=== PATIENT | female | born 1950 | race American Indian/Alaskan Native ===

== ENCOUNTER 2017-03-15 19:27 | Emergency (ER) | payer MEDICARE, OTHER ==
[2017-03-15 19:32] VITALS: BMI 32.8
--- NOTE | 2017-03-15 20:13 | ED PDOC ---
Arrival/HPI - General Chief Complaint: Lower Extremity Problem/Injury Time Seen by Provider: 03/15/17 19:29 Historian: Patient - History of Present Illness Narrative History of Present Illness (Text): 03/15/17 20:09 A 67 year old female, whose past medical history includes psoriasis and smoker, sent into the emergency department by PMD for left leg pain and swelling for 5 days. Patient was sent by Dr. Bolanos for an ultrasound. She denies any discoloration or coldness to her left foot. Patient denies any fever, chills, nausea, vomiting, abdominal pain, chest pain, shortness of breath or any other complaints. Patient denies history of mrsa. PMD: Dr. Bolanos Time/Duration: Other (5 days) Symptom Course: Unchanged Quality: Other Context: Home Past Medical History - Provider Review Nursing Documentation Reviewed: Yes - Tetanus Immunization Tetanus Immunization: >10 years Ago - Cardiac Hx Hypertension: Yes - Pulmonary Hx Respiratory Disorders: Yes Other/Comment: SMOKER - Neurological Hx Neurological Disorder: No - HEENT Hx HEENT Disorder: No - Renal Hx Renal Disorder: No - Endocrine/Metabolic Hx Hypothyroidism: Yes - Hematological/Oncological Hx Blood Disorders: No - Integumentary Hx Dermatological Disorder: No - Musculoskeletal/Rheumatological Hx Musculoskeletal Disorders: No - Gastrointestinal Hx Gastrointestinal Disorders: No - Genitourinary/Gynecological Hx Genitourinary Disorders: No - Psychiatric Hx Psychophysiologic Disorder: No Hx Substance Use: No - Surgical History Other/Comment: L BREAST BX - Suicidal Assessment Feels Threatened In Home Enviroment: No Family/Social History - Physician Review Nursing Documentation Reviewed: Yes Family/Social History: No Known Family HX Smoking Status: Heavy Smoker > 10 Cigarettes Daily Hx Alcohol Use: No Hx Substance Use: No Hx Substance Use Treatment: No Allergies/Home Meds Allergies/Adverse Reactions: Allergies corn Allergy (Verified 03/15/17 19:33) ANAPHYLAXIS rye Allergy (Uncoded 03/15/17 19:33) ANAPHYLAXIS Home Medications: Home Meds Medication Instructions Recorded Confirmed Levothyroxine Sodium [Levoxyl] 88 mcg PO DAILY 03/15/17 03/15/17 Review of Systems - Physician Review All systems were reviewed & negative as marked: Yes - Review of Systems Constitutional: absent: Fevers, Night Sweats Respiratory: absent: SOB Cardiovascular: absent: Chest Pain Gastrointestinal: absent: Abdominal Pain, Nausea, Vomiting Musculoskeletal: Other (left leg pain and swelling) Physical Exam Vital Signs Reviewed: Yes Vital Signs Temp Pulse Resp BP Pulse Ox 03/15/17 19:36 98.2 F 92 H 17 120/71 95 Temperature: Afebrile Blood Pressure: Normal Pulse: Tachycardic Respiratory Rate: Normal Appearance: Positive for: Well-Appearing, Non-Toxic, Comfortable Pain Distress: None Mental Status: Positive for: Alert and Oriented X 3 - Systems Exam Mouth: Present: Moist Mucous Membranes Respiratory/Chest: Present: Clear to Auscultation, Good Air Exchange. No: Respiratory Distress, Accessory Muscle Use Cardiovascular: Present: Regular Rate and Rhythm, Normal S1, S2. No: Murmurs Abdomen: Present: Normal Bowel Sounds. No: Tenderness, Distention, Peritoneal Signs Lower Extremity: Present: Edema (bilateral trace pedal edema), CALF TENDERNESS ( area of tenderness to left posterior calf 2cm in diameter ), Normal ROM, Temperature Abnormalties (area of warmth to left posterior calf 2cm in diameter ), Neurovascularly Intact, Other (Mild induration but no significant fluctuance or drainage. Good profusion to bilateral feet and toes.). No: NORMAL PULSES (1 + DP pulse) Neurological: Present: GCS=15, CN II-XII Intact, Speech Normal Skin: Present: Warm, Dry, Normal Color. No: Rashes Psychiatric: Present: Alert, Oriented x 3, Normal Insight, Normal Concentration Medical Decision Making ED Course and Treatment: 03/15/17 20:09 Impression: A 67 year old female sent in by PMD for left leg pain and swelling Differential Diagnosis included but are not limited to: Most likely early cellulitis vs. DVT vs. Abscess Plan: -- Left duplex lower extremity ultrasound -- Reassess and disposition Progress Notes: Had a discussion with the patient regarding smoking cessation. - RAD Interpretation Radiology Orders: 03/15/17 19:35 DUPLEX LOWER EXTRM VEIN LEFT [US] Stat - Medication Orders Current Medication Orders: Doxycycline Hyclate (Doryx) 100 mg PO STAT STA PRN Reason: Protocol Stop: 03/15/17 20:56 - Scribe Statement The provider has reviewed the documentation as recorded by the Rodolfoibfrank Robert Provider Scribe Attestation: All medical record entries made by the Scribe were at my direction and personally dictated by me. I have reviewed the chart and agree that the record accurately reflects my personal performance of the history, physical exam, medical decision making, and the department course for this patient. I have also personally directed, reviewed, and agree with the discharge instructions and disposition. Disposition/Present on Arrival - Present on Arrival Any Indicators Present on Arrival: No History of DVT/PE: No History of Uncontrolled Diabetes: No Urinary Catheter: No History of Decub. Ulcer: No History Surgical Site Infection Following: None - Disposition Have Diagnosis and Disposition been Completed?: Yes Diagnosis: Cellulitis and abscess of left leg Disposition: HOME/ ROUTINE Disposition Time: 20:56 Patient Plan: Discharge Condition: IMPROVED Discharge Instructions (ExitCare): Cellulitis (ED) Additional Instructions: followup with your doctor in 2-3 days. Prescriptions: Cefpodoxime [Vantin] 200 mg PO BID #20 tab Doxycycline Monohydrate 100 mg PO BID #20 tablet Forms: [employer] (Frisian)
[2017-03-15 20:28] VITALS: TEMP 98.2
[2017-03-15 21:00] VITALS: BP 118/65; PULSE 80; RESP 18; O2SAT 96
--- NOTE | 2017-03-16 09:13 | US ---
PROCEDURE: Left lower extremity venous US HISTORY: Leg pain and swelling. Evaluate for DVT. PHYSICIAN(S): Wily Jeter MD. TECHNIQUE: Duplex sonography and color-flow Doppler with graded compression were used to evaluate the deep venous system of the left lower extremity. FINDINGS: The visualized deep venous system of the left lower extremity is sonographically normal and compressible. Normal wave forms and augmentation are seen. There is no sonographic evidence for deep venous thrombosis in the visualized segments of the left lower extremity. IMPRESSION: 1. No sonographic evidence for deep venous thrombosis in the visualized segments of the left lower extremity.
== END 2017-03-15 21:13 | disposition home or self-care (01) ==
LOC: ED 19:27
DX: L03.116 Cellulitis of left lower limb (principal); I10 Essential (primary) hypertension; F17.210 Nicotine dependence, cigarettes, uncomplicated

== ENCOUNTER 2017-11-29 06:49 | Day surgery (SDC) | payer MEDICARE, OTHER ==
[2017-11-21 09:37] VITALS: BMI 32.9
[2017-11-29] MEDS ORDERED: Propofol 10 mg/ml Inj (20 ML) ONE ×2 (08:43→09:02)
[2017-11-29] MEDS ORDERED: Sodium Chloride 0.9% 1,000 ML IV SCH (09:30)
[2017-11-29 10:12] VITALS: PULSE 68; RESP 16; TEMP 97.8; O2SAT 100
[2017-11-29 10:41] VITALS: BP 127/72
== END 2017-11-29 10:36 | disposition home or self-care (01) ==
LOC: ENDO 06:49
PROVIDERS: ATTEND Specialist
DX: K57.30 Diverticulosis of large intestine without perforation or abscess without bleeding (principal); K64.8 Other hemorrhoids; K62.89 Other specified diseases of anus and rectum; I10 Essential (primary) hypertension; Z85.3 Personal history of malignant neoplasm of breast
CPT/HCPCS: 45378; J2704; J7030; J7040

== ENCOUNTER 2018-01-31 19:53 | Observation (INO) | payer MEDICARE, OTHER ==
[2018-01-31 20:00] VITALS: BMI 33.5
[2018-01-31 22:21] LABS: BASO # 0.04 K/mm3 (0.0-2.0); BASO % 0.4 % (0.0-3.0); BLOOD UREA NITROGEN 22 mg/dL (7-21); CALCIUM 9.3 mg/dL (8.4-10.5); EOS # 0.1 (0.0-0.7); EOS % 1.2 % (1.5-5.0); GFR NON-AFRICAN AMERICAN > 60; GRAN # 7.47 (1.4-6.5); GRAN % 80.6 % (50.0-68.0); HEMOGLOBIN 12.3 g/dL (12.0-16.0); LYMPH # 1.2 (1.2-3.4); LYMPH % 12.6 % (22.0-35.0); MEAN CELL VOLUME 92.4 fl (80.0-105.0); MEAN CORPUSCULAR HGB CONC 32.5 g/dl (31.0-37.0); MEAN PLATELET VOLUME 9.6 fl (7.0-11.0); MONO # 0.5 (0.1-0.6); MONO % 5.2 % (1.0-6.0); RBC 4.1 10^6/uL (3.5-6.1); RED CELL DISTRIBUTION WIDTH 13.1 % (11.5-14.5); WHITE BLOOD COUNT 9.3 10^3/ul (4.5-11.0)
[2018-01-31 22:22] LABS: ALBUMIN 4.2 g/dL (3.0-4.8); ALT/SGPT 20 U/L (7-56); AST/SGOT 29 U/L (14-36); TROPONIN I < 0.01 ng/mL
[2018-01-31 22:31] LABS: LIPASE 48 U/L (23-300)
--- NOTE | 2018-01-31 22:44 | ED PDOC ---
Arrival/HPI - General Chief Complaint: Chest Pain Time Seen by Provider: 01/31/18 22:09 Historian: Patient - History of Present Illness Narrative History of Present Illness (Text): 01/31/18 22:41 A 68 year old female, whose past medical history includes hypertension, hyperthyroidism, myomectomy, presents to the emergency department with a complaint of left sided chest pain. The patient notes that the pain began this morning.She states that she thought it was gas, but throughout the day as she would breathe in, she would feel the sharp pain. She describes the pain as "squeezing my lung". The patient denies any history of blood clots. The patient denies fevers, chills, headache, dizziness, shortness of breath, dyspnea on exertion, cough, sore throat, abdominal pain, nausea, vomiting, diarrhea, back pain, neck pain, urinary/bowel changes, trauma/injury, or any other complaints. PMD: Dr. Bolanos Onclogist: Dr. Barros Radiation: Dr. Tobar Time/Duration: Other (This Morning) Symptom Onset: Sudden Symptom Course: Unchanged Activities at Onset: Rest, Light Context: Home Past Medical History - Provider Review Nursing Documentation Reviewed: Yes - Tetanus Immunization Tetanus Immunization: >10 years Ago - Cardiac Hx Pacemaker: No - Pulmonary Hx Respiratory Disorders: Yes Hx Bronchitis: Yes Other/Comment: SMOKER - Neurological Hx Neurological Disorder: No - HEENT Hx HEENT Disorder: No - Renal Hx Renal Disorder: No - Endocrine/Metabolic Hx Endocrine Disorders: Yes Hx Hypothyroidism: Yes - Hematological/Oncological Hx Blood Disorders: No Hx Blood Transfusions: No Hx Cancer: Yes - Integumentary Hx Dermatological Disorder: Yes Hx Cellulitis: Yes - Musculoskeletal/Rheumatological Hx Musculoskeletal Disorders: No - Gastrointestinal Hx Gastrointestinal Disorders: No - Genitourinary/Gynecological Hx Genitourinary Disorders: No - Psychiatric Hx Psychophysiologic Disorder: No Hx Substance Use: No - Surgical History Other/Comment: LUMPECTOMY - Anesthesia Hx Anesthesia Reactions: No Hx Malignant Hyperthermia: No - Suicidal Assessment Feels Threatened In Home Enviroment: No Family/Social History - Physician Review Nursing Documentation Reviewed: Yes Family/Social History: No Known Family HX Smoking Status: Heavy Smoker > 10 Cigarettes Daily Hx Alcohol Use: No Hx Substance Use: No Hx Substance Use Treatment: No Allergies/Home Meds Allergies/Adverse Reactions: Allergies corn Allergy (Verified 01/31/18 20:02) ANAPHYLAXIS rye Allergy (Uncoded 01/31/18 20:02) ANAPHYLAXIS Home Medications: Home Meds Medication Instructions Recorded Confirmed Acetaminophen [Tylenol 325mg tab] 650 mg PO Q4H PRN 11/21/17 01/31/18 Anastrozole [Arimidex 1 mg Tab] 1 mg PO DAILY 11/21/17 01/31/18 Levothyroxine [Synthroid] 125 mcg PO DAILY 11/21/17 01/31/18 Multivit-Min/Iron/Folic/Lutein 1 cap PO DAILY 11/21/17 01/31/18 [Centrum Silver Women Tablet] Triamterene/Hydrochlorothiazid 1 cap PO DAILY 11/21/17 01/31/18 [Triamterene-Hctz 37.5-25 mg Cp] Albuterol Sulfate [Proair Hfa] 2 puff NEB Q6 PRN 01/31/18 01/31/18 Review of Systems - Physician Review All systems were reviewed & negative as marked: Yes - Review of Systems Constitutional: absent: Fevers ENT: absent: Sore Throat Respiratory: absent: SOB, Cough Cardiovascular: Chest Pain. absent: HALL Gastrointestinal: absent: Abdominal Pain, Stool Changes, Diarrhea, Nausea, Vomiting Genitourinary Female: absent: Urine Output Changes Musculoskeletal: absent: Back Pain, Neck Pain Neurological: absent: Headache, Dizziness Physical Exam Vital Signs Reviewed: Yes Vital Signs Temp Pulse Resp BP Pulse Ox 01/31/18 20:12 98.0 F 95 H 17 120/68 99 Temperature: Afebrile Blood Pressure: Normal Pulse: Tachycardic Respiratory Rate: Normal Appearance: Positive for: Well-Appearing, Non-Toxic, Comfortable Pain Distress: None Mental Status: Positive for: Alert and Oriented X 3 - Systems Exam Head: Present: Atraumatic, Normocephalic Pupils: Present: PERRL Extroacular Muscles: Present: EOMI Conjunctiva: Present: Normal Mouth: Present: Moist Mucous Membranes Neck: Present: Normal Range of Motion Respiratory/Chest: Present: Clear to Auscultation, Good Air Exchange. No: Respiratory Distress, Accessory Muscle Use Cardiovascular: Present: Regular Rate and Rhythm, Normal S1, S2. No: Murmurs Abdomen: No: Tenderness, Distention, Peritoneal Signs Back: Present: Normal Inspection Upper Extremity: Present: Normal Inspection. No: Cyanosis, Edema Lower Extremity: Present: Normal Inspection. No: Edema Neurological: Present: GCS=15, CN II-XII Intact, Speech Normal Skin: Present: Warm, Dry, Normal Color. No: Rashes Psychiatric: Present: Alert, Oriented x 3, Normal Insight, Normal Concentration Medical Decision Making ED Course and Treatment: 01/31/18 22:45 Impression: A 68 year old female presents to the emergency department with a complaint of left sided chest pain on inspiration since this morning. Plan: -- Angio CT -- EKG -- Chest X-ray -- Labs -- Reassess and disposition Prior Visits: Notes and results from previous visits were reviewed. Progress Notes: 01/31/18 22:23: Chest X-ray read and interpreted by me is unremarkable. 02/01/18 01:28: Case discussed in detail with Dr. Bolanos who accepts the patient for admission. CTA OF THE CHEST WITH IV CONTRAST Electronically signed on Feb 01, 2018 1:40:12 AM EDT by: Magy Barr M.D., Certified by ABR, MSK, Neuroradiology Impression: No demonstrated pulmonary embolism or arterial dissection. Emphysema. EKG: Ordered, reviewed, and independently interpreted the EKG. Rate : 99 BPM Rhythm : NSR Interpretation : No STEMI. Flat t in lead 3 - Lab Interpretations Lab Results: 01/31/18 22:17 01/31/18 22:17 Lab Results 01/31/18 22:17: Sodium 141, Potassium 4.0, Chloride 107, Carbon Dioxide 25, Anion Gap 13, BUN 22 H, Creatinine 0.8, Est GFR ( Amer) > 60, Est GFR (Non-Af Amer) > 60, Random Glucose 114 H, Calcium 9.3, Magnesium 2.0, Total Bilirubin 0.4, AST 29, ALT 20, Alkaline Phosphatase 110, Troponin I < 0.01, NT-Pro-B Natriuret Pep Pending, Total Protein 8.3, Albumin 4.2, Globulin 4.1, Albumin/Globulin Ratio 1.0 L, Lipase 48 01/31/18 22:17: WBC 9.3, RBC 4.10, Hgb 12.3, Hct 37.9, MCV 92.4, MCH 30.0, MCHC 32.5, RDW 13.1, Plt Count 273, MPV 9.6, Gran % 80.6 H, Lymph % (Auto) 12.6 L, O'Brien % (Auto) 5.2, Eos % (Auto) 1.2 L, Baso % (Auto) 0.4, Gran # 7.47 H, Lymph # (Auto) 1.2, O'Brien # (Auto) 0.5, Eos # (Auto) 0.1, Baso # (Auto) 0.04 I have reviewed the lab results: Yes - RAD Interpretation Radiology Orders: 01/31/18 22:23 CHEST PORTABLE [RAD] Stat - EKG Interpretation Interpreted by ED Physician: Yes Type: 12 lead EKG - Scribe Statement The provider has reviewed the documentation as recorded by the Scribe Lucy Gamino Provider Scribe Attestation: All medical record entries made by the Scribe were at my direction and personally dictated by me. I have reviewed the chart and agree that the record accurately reflects my personal performance of the history, physical exam, medical decision making, and the department course for this patient. I have also personally directed, reviewed, and agree with the discharge instructions and disposition. Disposition/Present on Arrival - Present on Arrival Any Indicators Present on Arrival: No History of DVT/PE: No History of Uncontrolled Diabetes: No Urinary Catheter: No History of Decub. Ulcer: No History Surgical Site Infection Following: None - Disposition Have Diagnosis and Disposition been Completed?: Yes Diagnosis: Chest pain Disposition: HOSPITALIZED Disposition Time: 01:28 Patient Problems: Current Active Problems Problem Status Onset Chest pain Acute Condition: GOOD Discharge Instructions (ExitCare): Chest Pain (ED) Referrals: David Bolanos MD [Primary Care Provider] - Follow up with primary Forms: [employer] (Swazi)
[2018-01-31] MEDS ORDERED: Iodixanol 320 MG/ML 100 ML BOTTLE IV ONE (23:18)
[2018-02-01] MEDS ORDERED: Pneumococcal 23-Valent Vaccine IM ONE (03:38)
[2018-02-01] MEDS ORDERED: Influenza Vaccine 60 mcg/0.5 mL SYR (4YR UP) IM ONE (03:38)
[2018-02-01 03:43] VITALS: RESP 20
[2018-02-01 04:00] VITALS: TEMP 98.3
[2018-02-01] MEDS ORDERED: Levothyroxine 125 MCG TAB PO SCH (06:00)
--- NOTE | 2018-02-01 07:54 | RAD ---
HISTORY: CHEST PAIN COMPARISON: Chest x-ray performed 07/21/16 TECHNIQUE: Chest, one view. FINDINGS: Examination limited by habitus. LUNGS: Right hilar/infrahilar opacity. Please note that chest x-ray has limited sensitivity for the detection of pulmonary masses. PLEURA: No significant pleural effusion identified. No definite pneumothorax . CARDIOVASCULAR: Heart size appears within normal limits. Atherosclerotic calcification of the aortic knob. OSSEOUS STRUCTURES: Degenerative changes. VISUALIZED UPPER ABDOMEN: Unremarkable. OTHER FINDINGS: None. IMPRESSION: Right hilar/infrahilar opacity. Recommend attention on CTA chest scheduled to follow.
[2018-02-01] MEDS ORDERED: Albuterol-Ipratrop 3 mg / 0.5 (3 ml) UD IH SCH (08:00)
--- NOTE | 2018-02-01 08:00 | CT ---
Date of service: 02/01/2018 CTA chest PE protocol Indication: pleuritic cp, hx of breast ca Technique: Contiguous axial images were obtained through the chest with intravenous contrast enhancement. Sagittal and coronal reconstructions were generated and reviewed. This CT exam was performed using 1 or more of the following dose reduction techniques: Automated exposure control, adjustment of the MAA and/or kV according to patient size, and/or use of iterative reconstruction technique. IV contrast: 100 mL Visipaque 320 Radiation dose (DLP): 461.58 MGy-cm. Comparison: Chest x-ray performed 01/31/18 Findings: Visualized portions of the inferior thyroid gland appear unremarkable. The mediastinal and hilar vascular structures appear within normal limits. The heart appears within normal limits of size. No large central or segmental pulmonary embolus evident. Centrilobular emphysema. Bibasilar atelectasis. No pleural effusion. No pneumothorax. No suspicious pulmonary nodules identified measuring greater than 5 mm. Limited visualized portions of the upper abdomen appear grossly unremarkable. Partially imaged moderate constipation. Degenerative changes. Impression: No large central or segmental pulmonary embolus identified. Emphysematous changes. Bibasilar atelectasis. Partially imaged moderate constipation. Preliminary impression was provided by [employer].
[2018-02-01 09:59] VITALS: BP 127/73; O2SAT 100
[2018-02-01] MEDS ORDERED: hydroCHLOROthiazide-Triamterene 25 mg-37.5 mg Cap UD PO SCH (10:00)
[2018-02-01] MEDS ORDERED: Multivitamin With Minerals Tab PO SCH (10:00)
[2018-02-01 10:47] LABS: BASO # 0.03 K/mm3 (0.0-2.0); BASO % 0.5 % (0.0-3.0); EOS # 0.1 (0.0-0.7); EOS % 1.8 % (1.5-5.0); GRAN # 4.19 (1.4-6.5); GRAN % 69.6 % (50.0-68.0); HEMOGLOBIN 12.1 g/dL (12.0-16.0); LYMPH # 1.5 (1.2-3.4); MEAN CELL VOLUME 92.6 fl (80.0-105.0); MEAN CORPUSCULAR HGB CONC 32.4 g/dl (31.0-37.0); MEAN PLATELET VOLUME 9.2 fl (7.0-11.0); MONO # 0.3 (0.1-0.6); MONO % 4.1 % (1.0-6.0); RBC 4.03 10^6/uL (3.5-6.1); RED CELL DISTRIBUTION WIDTH 13.1 % (11.5-14.5)
[2018-02-01 11:24] VITALS: PULSE 74
--- NOTE | 2018-02-01 13:53 | CARD ---
APPROVED REPORT Date of service: 01/31/2018 EKG Measurement Heart [id number] CO [id number] [id number] <Conclusion> Normal sinus rhythm Minimal voltage criteria for LVH, may be normal variant Borderline ECG
[2018-02-01] MEDS ORDERED: Naproxen 275 mg Tab PO SCH (18:00)
--- NOTE | 2018-02-01 19:36 | HP ---
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 The patient complained of one day history of left-sided chest pain worsened by deep inspiration. The patient denied shortness of breath, fever, chills, cough, sputum production. The patient complained only of deep pain on deep inspiration, particularly in the left lower chest and the left lateral chest. The patient has no travel history. SOCIAL HISTORY: Only positive for tobacco, not for alcohol or any illicit drugs. The patient is a breast cancer survivor, on hormonal therapy at this point. PAST SURGICAL HISTORY: Only pertinent for her breast biopsy. The patient is status post radiation therapy and hormonal therapy for her breast cancer. PAST MEDICAL HISTORY: She also has a history of hypothyroidism, on Synthroid; mild hypertension, on Dyazide. She is taking DuoNeb at home and Arimidex for her breast cancer. FAMILY HISTORY: Noncontributory. REVIEW OF SYSTEMS: Except for what is stated as above, for her respiratory, she denies any retrosternal chest pain. Denies any palpitations, diaphoresis, dizziness, lightheadedness. She denies any nausea, vomiting, diarrhea. She denies any headache, change in mental status, change in her vision or speech. PHYSICAL EXAMINATION: GENERAL: A well-developed, elderly black female, in no apparent distress this morning. CHEST: Shows decreased breath sounds and rhonchi in both bases. HEART: Regular sinus rhythm. No S3 or murmurs. Carotids are without bruits. EXTREMITIES: Without cyanosis, clubbing, or edema. ABDOMEN: Soft. NEUROLOGIC: Grossly intact. IMPRESSION: Pleuritic-type chest pain, rule out pleuritis, pleural effusion, rule out pulmonary embolism, rule out cardiac chest pain. Initial workup in the ER showed a negative CT angiogram for pulmonary embolism. First set of troponins was negative, second is pending. David Bolanos MD
== END 2018-02-01 12:46 | disposition home or self-care (01) ==
LOC: ED 19:53 → INTOOBSV 02-01 01:47 → ERH 02-01 01:47 → 3RSO 02-01 03:15
PROVIDERS: ADMIT Internal Medicine; ATTEND Internal Medicine
DX: R07.81 Pleurodynia (principal); I10 Essential (primary) hypertension; J44.9 Chronic obstructive pulmonary disease, unspecified; E03.9 Hypothyroidism, unspecified; Z87.891 Personal history of nicotine dependence; Z85.3 Personal history of malignant neoplasm of breast; Z79.811 Long term (current) use of aromatase inhibitors; Z92.3 Personal history of irradiation
CPT/HCPCS: 36415; 71045; 71275; 80053; 83690; 83735; 83880; 84484; 85025; 93005; 94640; 99285; G0378; J2930; Q9967